=== PATIENT | female | born 1985 ===

== ENCOUNTER 2017-02-16 09:19 | Day surgery (SDC) | payer BC, OTHER ==
[2017-02-12 11:45] VITALS: BMI 29.0
[2017-02-16] MEDS ORDERED: Lactated Ringer's 1,000 ML IV ONE (10:02)
--- NOTE | 2017-02-16 10:13 | CP.SDSHP ---
Same Day Surgery H & P - History Proposed Procedure: laparoscopic BTL Pre-Op Diagnosis: multiparity and voluntary sterilization - Previous Medical/Surgical History Previous Surgical History: TOP 1996, d/C 2013 - Allergies Allergies: Allergies No Known Allergies Allergy (Verified 03/06/14 12:19) - Physical Exam General Appearance: w/o x3, well nourished NAD Vital Signs: Vital Signs 02/16/17 02/16/17 09:52 09:55 Temperature 98.8 F Pulse Rate 76 76 Respiratory 20 Rate Blood Pressure 115/69 O2 Sat by Pulse 99 Oximetry Mental Status: Alert & Oriented x3 Neuro: WNL Heart: WNL Lungs: WNL GI: WNL - {Optional Preform as Required} Abdomen: WNL Integument: WNL SHEEP RANCHER: WNL - Impression Impression: for tubal sterilization - Date & Time Date: 02/16/17 Time: 10:14 Short Stay Discharge - Short Stay Discharge Admitting Diagnosis/Reason for Visit: Z64.1 Disposition: HOME/ ROUTINE Referrals: FAMILY PROVIDER,NO [Primary Care Provider] -
[2017-02-16 10:24] LABS: HEMATOCRIT 32.2 % (34.0-47.0); MEAN CELL VOLUME 77.9 fl (81.0-99.0); MEAN CORPUSCULAR HEMOGLOBIN 24.7 pg (27.0-31.0); MEAN CORPUSCULAR HGB CONC 31.7 g/dL (33.0-37.0); RED CELL DISTRIBUTION WIDTH 17.2 % (11.5-14.5); WHITE BLOOD COUNT 5.7 K/uL (4.8-10.8)
[2017-02-16] MEDS ORDERED: Propofol 10 mg/ml Inj (20 ML) ONE (10:47)
[2017-02-16] MEDS ORDERED: Neostigmine Methylsulfate 3mg/3ml Syringe IV ONE (10:47)
[2017-02-16] MEDS ORDERED: Rocuronium 10 mg/ml (5 ml) ONE (10:47)
[2017-02-16] MEDS ORDERED: Midazolam 2 MG/2 ML VIAL ONE (10:47)
[2017-02-16] MEDS ORDERED: Oxycodone/Acetaminophen 5/325 mg Tab PO PRN (12:04)
[2017-02-16] MEDS ORDERED: HYDROmorphone 0.5 mg/0.5 ml ISec ONE (12:09)
--- NOTE | 2017-02-16 12:10 | CP.SDSHP ---
Same Day Surgery H & P - Allergies Allergies: Allergies No Known Allergies Allergy (Verified 03/06/14 12:19) - Physical Exam Vital Signs: Vital Signs 02/16/17 02/16/17 02/16/17 09:52 09:55 12:01 Temperature 98.8 F 98.1 F Pulse Rate 76 76 79 Respiratory 20 20 Rate Blood Pressure 115/69 124/68 O2 Sat by Pulse 99 97 Oximetry Short Stay Discharge - Short Stay Discharge Admitting Diagnosis/Reason for Visit: Z64.1 Referrals: FAMILY PROVIDER,NO [Primary Care Provider] - Additional Instructions (Diet, Activity): pelvic rest and appt to office 2 wks Progress Note/Discharge Note with Instructions: tolerated procedure well no complications Recovered well
[2017-02-16] MEDS ORDERED: HYDROmorphone 0.5 mg/0.5 ml ISec IVP PRN (12:16)
[2017-02-16] MEDS ORDERED: Lactated Ringer's 1,000 ML IV SCH (12:30)
[2017-02-16 15:31] VITALS: RESP 18; O2SAT 98
[2017-02-16] MEDS ORDERED: Oxycodone/Acetaminophen 5/325 mg Tab PO ONE (17:10)
[2017-02-16 17:22] VITALS: BP 96/53; PULSE 69; TEMP 98.6
--- NOTE | 2017-02-19 18:45 | OP ---
PROCEDURE DATE: 02/16/2017 PREOPERATIVE DIAGNOSES: Multiparity and voluntary sterilization. POSTOPERATIVE DIAGNOSES: 1. Multiparity and voluntary sterilization. 2. Abdominal adhesions. PROCEDURE PERFORMED: Laparoscopic bilateral tubal sterilization using electrocoagulation. SURGEON: Dr. Cooper. PLUNGER MACHINE OPERATOR: Ms. Trena PA-C. ANESTHESIA USED: General by Dr. Hale ESTIMATED BLOOD LOSS: 75 mL. DRAINS USED: None. REPLACEMENTS USED: None. FINDINGS: 1. Cervix appears thick, mobile, no gross lesion to visualization. 2. Uterus supper limit size, mobile, smooth. 3. Both tubes and ovaries appear grossly within normal limits to inspection except for the left ovary with a small 1 cm simple cyst. 4. Right and left side adhesions of the omentum to the anterior abdominal beck[place] , not posing any threat of an entrapment of bowel. DESCRIPTION OF PROCEDURE: The patient was taken to the operating room and placed on the operating table in a supine position. Following induction of general anesthesia, the patient was then replaced in a dorsal lithotomy position. Perineal, genital and abdominal areas were draped and prepped in the usual sterile manner. Sterile catheter was then placed into the bladder, clear fluid was then evacuated from the bladder. The patient was then examined under anesthesia with some of the above findings. Heavy weighted speculum was then placed in the posterior wall of vagina exposing the cervix. The anterior lip of the cervix was then grasped using a single-tooth tenaculum and retracted superiorly. At this time, the endocervical canal was then gently dilated using Hanks dilators in an increasing size manner. Following this, we then proceeded to place a HUMI cannula in the endocervical canal in order to manipulate the uterus. Single-tooth tenaculum removed. No bleeding noted and attention was then given to the abdomen. At the umbilicus, a Veress needle was then introduced into the abdomen and about 5 liters of carbon dioxide were then introduced into the abdomen, thus creating a pneumoperitoneum. Following this, Veress needle was then removed and a 5 mm incision was then made at the umbilicus. Through this, a laparoscopic trocar was then introduced into the abdomen and through the trocar sheath, a laparoscope was then introduced into the abdomen. Visualization of the area underneath the insertion, showed no signs of trauma or bleeding. At this time, a 5 mm trocar was then introduced suprapubically under direct visualization. The uterus appears mid position smooth upper limits size. Both tubes appears grossly within normal limits to inspection bilaterally. Left ovary with a small 1 cm simple cyst, right ovary appear grossly within normal limits to inspection. At this time, through the 5 mm suprapubic port, a [employer] forceps was introduced into the abdomen. The right fallopian tube was followed to its fimbriated end and grabbed to the ampullary region and retracted superiorly away from adjacent structures. Under direct visualization, electrocoagulation was then applied, blanching of about 3- 4 cm section of the tube noted to be present. Same procedure was then performed on the contralateral side without any complications. Following bilateral tubal sterilization using this electric coagulation, the abdomen was then inspected. Adhesions of the omentum to the anterior left and right abdominal wall noted to be present, not posing threat for entrapment so no need to lyse at this time. All operative areas checked, hemostatically secure and the 5 mm trocar was then removed after the pneumoperitoneum had been partially evacuated. No bleeding noted from this site. The pneumoperitoneum was then evacuated and the 5 mm umbilical trocar tube was then removed under direct visualization and at this time, the skin was then approximated using a 3-0 suture Monocryl and Dermabond was applied. HUMI cannula was then removed. No bleeding noted. The patient tolerated the procedure well. There were no complications. She was transferred to the recovery room in satisfactory condition. Sampson Cooper MD cc: [id number] TT: 02/19/2017 18:44:58 jn MTDD
--- NOTE | 2017-02-22 14:36 | PROCN ---
DATE: 02/16/2017 PREOPERATIVE DIAGNOSES: Multiparity and voluntary sterilization. POSTOPERATIVE DIAGNOSES: Multiparity and voluntary sterilization, and abdominal adhesions. PROCEDURES: Laparoscopic bilateral tubal sterilization using electrocoagulation. SURGEON: Dr. Cooper. BALANCE STAFF INSPECTOR: Linda Albrecht PA-C. BANK MANAGER SURGICAL [place] PROCEDURE NOTE: ILinda, am a board certified surgical physician pharmacy affairs assistant whose assistance was needed during this case (no resident was available), for positioning of the patient, opening incisions, placement of laparoscopic trocars, laparoscopic visualization during the case, assistance with cauterization of fallopian tubes for tubal ligation, and closing incisions. My assistance was deemed necessary for a successful completion of the case. I was present with the entire case with Dr. Cooper. Linda Albrecht PA-C Sampson Cooper MD cc: [id number] TT: 02/22/2017 14:35:49 Confirmation # [id number] Dictation # [id number] mn MTDIirs
== END 2017-02-16 17:50 | disposition home or self-care (01) ==
LOC: H.OPSURG 09:19
PROVIDERS: ATTEND Specialist
DX: Z64.1 Problems related to multiparity (principal); Z30.2 Encounter for sterilization
CPT/HCPCS: 36415; 58565; 85027; J0694; J1170; J2001; J2250; J2405; J2704; J2710; J3010; J7030; J7120